=== PATIENT | male | born 1965 | race Caucasian/White ===

== ENCOUNTER 2022-10-27 09:42 | Outpatient (CLI) | payer OTHER, SELFPAY ==
--- NOTE | 2022-10-27 09:46 | EST_ITS ---
Patient Info Name: Giancarlo Mendez Age: 57 years : 1965 Gender: Male Ht: 70 in Wt: 230 lbs BSA: 2.30 m2 HR: 66 bpm BP: 129 / 85 mmHg Heart Rhythm: Sinus Rhythm Exam Date: 10/27/2022 10:02 AM Exam Location: [facility] Stress Patient Status: Outpatient Admit Date: 10/27/2022 Staff Ordering Physician: Francheska Grover Attending Provider: Harris Orellana NP Exercise Technologist: Maribell Martinez CT Exercise Physician: Ron Contreras DO Exam Type: CA stress test treadmill Study Info Indications R07.89 - Other chest pain A treadmill exercise stress test was performed. Summary 1. 1. Negative Bill exercise stress test for ischemic ST changes by ECG criteria. 2. 2. Good functional capacity, achieving 10 METs of workload. 3. 3. Appropriate HR response to exercise. 4. 4. Appropriate HR recovery at 1 minute post exercise. 5. 5. No imaging with stress testing. 6. 6. Patient informed of the above results. Protocol: Bill Stress ECG Details Stage: REST Duration (min): 1 min : 12 sec Speed (mph): 0.0 Grade (%): 0 HR (bpm): 66 SBP (mmHg): 129 DBP (mmHg): 95 METS: --- Stage: REST Duration (min): 5 min : 22 sec Speed (mph): 0.0 Grade (%): 0 HR (bpm): 69 SBP (mmHg): 129 DBP (mmHg): 95 METS: --- Stage: STAGE 1 Duration (min): 1 min : 0 sec Speed (mph): 1.7 Grade (%): 10 HR (bpm): 91 SBP (mmHg): 129 DBP (mmHg): 95 METS: --- Stage: STAGE 1 Duration (min): 2 min : 0 sec Speed (mph): 1.7 Grade (%): 10 HR (bpm): 97 SBP (mmHg): 129 DBP (mmHg): 95 METS: --- Stage: STAGE 1 Duration (min): 3 min : 0 sec Speed (mph): 1.7 Grade (%): 10 HR (bpm): 98 SBP (mmHg): 170 DBP (mmHg): 78 METS: --- Stage: STAGE 2 Duration (min): 1 min : 0 sec Speed (mph): 2.5 Grade (%): 12 HR (bpm): 109 SBP (mmHg): 170 DBP (mmHg): 78 METS: --- Stage: STAGE 2 Duration (min): 2 min : 0 sec Speed (mph): 2.5 Grade (%): 12 HR (bpm): --- SBP (mmHg): 170 DBP (mmHg): 78 METS: --- Stage: STAGE 2 Duration (min): 3 min : 0 sec Speed (mph): 2.5 Grade (%): 12 HR (bpm): --- SBP (mmHg): 170 DBP (mmHg): 78 METS: --- Stage: STAGE 3 Duration (min): 1 min : 0 sec Speed (mph): 3.4 Grade (%): 14 HR (bpm): 135 SBP (mmHg): 170 DBP (mmHg): 78 METS: --- Stage: STAGE 3 Duration (min): 2 min : 0 sec Speed (mph): 3.4 Grade (%): 14 HR (bpm): 147 SBP (mmHg): 172 DBP (mmHg): 81 METS: --- Stage: STAGE 3 Duration (min): 2 min : 10 sec Speed (mph): 3.4 Grade (%): 14 HR (bpm): 147 SBP (mmHg): 172 DBP (mmHg): 81 METS: --- Stage: RECOVERY Duration (min): 0 min : 49 sec Speed (mph): 0.0 Grade (%): 0 HR (bpm): 130 SBP (mmHg): 183 DBP (mmHg): 85 METS: --- Stage: RECOVERY Duration (min): 1 min : 49 sec Speed (mph): 0.0 Grade (%): 0 HR (bpm): 108 SBP (mmHg): 183 DBP (mmHg): 85
== END 2022-10-27 09:43 | disposition home or self-care (01) ==
LOC: ANHCARD 09:44
PROVIDERS: PCP Family Medicine; Visit Provider Nurse Practitioner Family
DX: R07.89 Other chest pain (principal)
CPT/HCPCS: 93017

== ENCOUNTER 2022-11-22 01:24 | Day surgery (SDC) | payer OTHER, SELFPAY ==
[2022-10-08 10:09] VITALS: BMI 33.8
[2022-11-11 17:52] VITALS: BMI 33.8
--- NOTE | 2022-11-16 12:58 | PM.HPGS ---
History of Present Illness History of Present Illness Consent: Risks, benefits, and alternatives have been discussed and questions answered. Patient agrees to proceed with procedure. Chief complaint: neoplasm screening Narrative: Giancarlo Mendez is a 57 year old male referred for colon cancer screening. Six years ago he had 2 polyps removed, a 2 cm adenoma from the rectum and a smaller polyp in the sigmoid colon. [facility] Past Medical History Medical History Benign hypertension BMI 32.0-32.9,adult BMI 34.0-34.9,adult Changing skin lesion Chest wall pain Dark stools Dietary counseling and surveillance (03/30/17) Elevated blood pressure reading without diagnosis of hypertension Encounter for general adult medical examination without abnormal findings Encounter for screening for malignant neoplasm of colon Hypertension Kidney function abnormal Lytic lesion of bone on x-ray Persistent cough Pneumonia of right upper lobe due to infectious organism Viral respiratory illness Family History Family History Father Hypertension Family history of lung cancer Heart disease Mesothelioma Grandparent Diabetes mellitus Mother , sepsis Obesity Hypertension Sibling No problems noted. Other Cerebrovascular accident Social History Social History Smoking status: Never smoker Second hand tobacco smoke exposure: Yes Alcohol intake: current Alcohol use details: on occasion Substance use: never Substance use type: does not use Lack of Transportation: No Lack of Food: Never True Current Housing: I Have Housing Concerned About Future Housing: No Difficulty Paying Gas/Electric Bills: No Difficulty Paying for Meds: No Currently Unemployed: No Education: Trade/Vocational Certificate Difficulty w/ Childcare or Family Care: No Living arrangements: with family Additional living arrangements comments: Mamie Mendez Occupation/Education: occupation 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 Gender identity (if verbalized by the patient): Male Spiritual care concerns: No Meds Home Medications and Allergies Home Medications Medication Instructions Recorded Confirmed Type tadalafil 10 mg tablet (Cialis) 10 mg PO DAILY PRN sexual activity 07/21/21 10/08/22 Rx #30 tabs omeprazole 40 mg capsule,delayed 40 mg PO DAILY #90 caps 06/09/22 10/08/22 Rx release benazepril 20 mg tablet 20 mg PO BID #180 tabs 09/02/22 10/08/22 Rx Allergies Allergy/AdvReac Type Severity Reaction Status Date / Time No Known Allergies Allergy Unknown Verified 10/08/22 10:09 Assessment and Plan Assessment and plan (1) Screening for malignant neoplasm of colon: Code(s): Z12.11 - Encounter for screening for malignant neoplasm of colon Status: Acute Assessment and Plan: Colonoscopy with possible biopsy or polypectomy or cautery or injection of substances.
--- NOTE | 2022-11-19 16:07 | PM.HPGS ---
History of Present Illness History of Present Illness Consent: Risks, benefits, and alternatives have been discussed and questions answered. Patient agrees to proceed with procedure. Chief complaint: neoplasm screening Narrative: Giancarlo Mendez is a 57 year old male Who is here for colon cancer screening. About 6 years ago he had 2 polyps removed. Review of Systems Review of Systems: All systems reviewed & are unremarkable except as noted in HPI and below PMFSH Past Medical History Medical History Benign hypertension BMI 32.0-32.9,adult BMI 34.0-34.9,adult Changing skin lesion Chest wall pain Dark stools Dietary counseling and surveillance (03/30/17) Elevated blood pressure reading without diagnosis of hypertension Encounter for general adult medical examination without abnormal findings Encounter for screening for malignant neoplasm of colon Hypertension Kidney function abnormal Lytic lesion of bone on x-ray Persistent cough Pneumonia of right upper lobe due to infectious organism Viral respiratory illness Family History Family History Father Hypertension Family history of lung cancer Heart disease Mesothelioma Grandparent Diabetes mellitus Mother , sepsis Obesity Hypertension Sibling No problems noted. Other Cerebrovascular accident Social History Social History Smoking status: Never smoker Second hand tobacco smoke exposure: Yes Alcohol intake: current Alcohol use details: on occasion Substance use: never Substance use type: does not use Lack of Transportation: No Lack of Food: Never True Current Housing: I Have Housing Concerned About Future Housing: No Difficulty Paying Gas/Electric Bills: No Difficulty Paying for Meds: No Currently Unemployed: No Education: Trade/Vocational Certificate Difficulty w/ Childcare or Family Care: No Living arrangements: with family Additional living arrangements comments: Mamie Mendez Occupation/Education: occupation 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 Gender identity (if verbalized by the patient): Male Spiritual care concerns: No Meds Home Medications and Allergies Home Medications Medication Instructions Recorded Confirmed Type tadalafil 10 mg tablet (Cialis) 10 mg PO DAILY PRN sexual activity 07/21/21 11/22/22 Rx #30 tabs omeprazole 40 mg capsule,delayed 40 mg PO DAILY #90 caps 06/09/22 11/22/22 Rx release benazepril 20 mg tablet 20 mg PO BID #180 tabs 09/02/22 11/22/22 Rx Allergies Allergy/AdvReac Type Severity Reaction Status Date / Time No Known Allergies Allergy Unknown Verified 11/22/22 12:21 Exam Resp: Auscultation: clear to auscultation bilaterally Cardio: Rate: regular rate Rhythm: regular rhythm GI: GI Palp: Yes Soft to palpation and No Tenderness to palpation present (GI) Assessment and Plan Assessment and plan (1) Screening for malignant neoplasm of colon: Code(s): Z12.11 - Encounter for screening for malignant neoplasm of colon Status: Acute Assessment and Plan: Colonoscopy with possible biopsy or polypectomy or cautery or injection of substances.
[2022-11-22 12:22] VITALS: BP 133/103; PULSE 73; RESP 20; TEMP 36.2; O2SAT 98
[2022-11-22] MEDS: LACTATED RINGERS 1,000 ML 150 ML IV CONT (12:24)
--- NOTE | 2022-11-22 13:00 | WPDANESEPPF ---
Anes - Initial Pre Proc Eval Procedure: Operation Date: 11/22/22 13:45 Proposed Procedures p Screening Colonoscopy - Jose Petty MD Date/Time: 11/22/22 13:00 Surgeon: Jose Petty MD Pre Op Diagnosis: neoplasm screening Patient Data Age: 57 Gender: M Height: 1.78 m Weight: 103.3 kg Last Vital Signs Temp 97.2 F L 11/22/22 12:22 Pulse 73 11/22/22 12:22 Resp 20 11/22/22 12:22 BP 133/103 H 11/22/22 12:22 Pulse Ox 98 11/22/22 12:22 O2 Del Method Room Air 11/22/22 12:22 Allergies Allergy/AdvReac Type Severity Reaction Status Date / Time No Known Allergies Allergy Unknown Verified 11/22/22 12:21 Home Medications Medication Instructions Recorded Confirmed Type tadalafil 10 mg tablet (Cialis) 10 mg PO DAILY PRN sexual activity 07/21/21 11/22/22 Rx #30 tabs omeprazole 40 mg capsule,delayed 40 mg PO DAILY #90 caps 06/09/22 11/22/22 Rx release benazepril 20 mg tablet 20 mg PO BID #180 tabs 09/02/22 11/22/22 Rx Patient hx anesthesia problems: none Family hx anesthesia problems: none Results Review: All pre-operative results and documents have been reviewed as part of the pre-operative evaluation. [facility] Past Medical History Medical History Benign hypertension BMI 32.0-32.9,adult BMI 34.0-34.9,adult Changing skin lesion Chest wall pain Dark stools Dietary counseling and surveillance (03/30/17) Elevated blood pressure reading without diagnosis of hypertension Encounter for general adult medical examination without abnormal findings Encounter for screening for malignant neoplasm of colon Hypertension Kidney function abnormal Lytic lesion of bone on x-ray Persistent cough Pneumonia of right upper lobe due to infectious organism Viral respiratory illness Family History Family History Father Hypertension Family history of lung cancer Heart disease Mesothelioma Grandparent Diabetes mellitus Mother , sepsis Obesity Hypertension Sibling No problems noted. Other Cerebrovascular accident Social History Social History Smoking status: Never smoker Second hand tobacco smoke exposure: Yes Alcohol intake: current Alcohol use details: on occasion Substance use: never Substance use type: does not use Lack of Transportation: No Lack of Food: Never True Current Housing: I Have Housing Concerned About Future Housing: No Difficulty Paying Gas/Electric Bills: No Difficulty Paying for Meds: No Currently Unemployed: No Education: Trade/Vocational Certificate Difficulty w/ Childcare or Family Care: No Living arrangements: with family Additional living arrangements comments: Mamie Mendez Occupation/Education: occupation 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 Informed Consent: The patient's anesthetic plan and its attendant risks and benefits were discussed with the patient/family/POA. Questions were solicited and answers provided to the satisfaction of the patient/family/POA.
[2022-11-22 14:12] VITALS: BP 114/64; PULSE 71; RESP 12; O2SAT 95
[2022-11-22 14:22] VITALS: BP 113/61; PULSE 70; RESP 16; O2SAT 97
[2022-11-22 14:32] VITALS: BP 124/91; PULSE 80; RESP 17; O2SAT 98
== END 2022-11-22 14:42 | disposition home or self-care (01) ==
PROVIDERS: PCP Family Medicine; Visit Provider Internal Medicine Gastroenterology
PROC: 0DJD8ZZ Inspection of Lower Intestinal Tract, Via Natural or Artificial Opening Endoscopic (ICD-10-PCS; CPT 45378; principal; 2022-11-22 13:45)
DX: Z12.11 Encounter for screening for malignant neoplasm of colon (principal); K57.30 Diverticulosis of large intestine without perforation or abscess without bleeding; Z86.010 Personal history of colon polyps; I10 Essential (primary) hypertension; E66.9 Obesity, unspecified; Z68.32 Body mass index [BMI] 32.0-32.9, adult
CPT/HCPCS: 45378; J2704; J7120

== ENCOUNTER 2025-04-23 13:10 | Outpatient (CLI) | payer OTHER, SELFPAY ==
--- NOTE | ~2025-04-23 | XR_ITS ---
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 Findings: No acute fracture or malalignment. No significant degenerative changes. Soft tissues unremarkable. Impression: No acute fracture or malalignment. Reviewed, dictated and finalized at location P. UCTION TECHNICIAN Impression: No acute fracture or malalignment.
== END 2025-04-23 13:11 | disposition home or self-care (01) ==
LOC: MICIMG 13:12
PROVIDERS: PCP Family Medicine; Visit Provider Physician Assistant Medical
DX: M25.521 Pain in right elbow (principal)
CPT/HCPCS: 73080